=== PATIENT | female | born 1950 | race African-American/Black ===

== ENCOUNTER 2018-06-07 17:29 | Emergency (ER) | payer BC ==
--- NOTE | 2018-06-07 19:07 | RAD REPORT ---
EXAM DESCRIPTION: CT - Stone Protocol - 06/07/2018 6:31 pm CLINICAL HISTORY: FLANK PAINAbdominal pain/right flank for 1 week COMPARISON: none TECHNIQUE: Computed axial tomography of the abdomen pelvis was obtained without oral or IV contrast. Lack of IV and oral contrast limits evaluation of solid organs, bowel, and vessels. Coronal reformat antonio images were obtained and reviewed. All CT scans are performed using dose optimization technique as appropriate and may include automated exposure control or mA/KV adjustment according to patient size. FINDINGS: A renal calculus is not seen. An ureteral calculus is not noted. A bladder calculus is not present. Small hepatic cyst is suspected. Spleen, pancreas and adrenals appear grossly normal There is no evidence of diverticulitis. The appendix is not clearly visualized although evaluation is limited secondary to lack of contrast administration A hysterectomy has been performed IMPRESSION: Negative for a genitourinary calculus
[2018-06-07] MEDS ORDERED: KETOROLAC 30 MG/ML INJ ONE (19:29)
--- NOTE | 2018-06-07 19:45 | EDPHYS ---
Physician Documentation [facility] Name: Ginger Carrington Age: 68 yrs Sex: Female : 1950 Arrival Date: 06/07/2018 Time: 17:34 Bed 19 Private MD: None, None ED Physician Babak Mcmillan HPI: 06/07 19:12 This 68 yrs old Black Female presents to ER via Ambulatory with complaints of Back kb Pain, Flank Pain. 19:12 The patient presents with pain that is acute, with no known mechanism of injury. The kb symptoms are located in the right side, just above right hip. Onset: The symptoms/episode began/occurred 10 day(s) ago. The pain does not radiate. Associated signs and symptoms: The patient has no apparent associated signs or symptoms. The problem was sustained from unknown cause. Modifying factors: The patient symptoms are alleviated by nothing, the patient symptoms are aggravated by walking. Severity of symptoms: At their worst the symptoms were moderate, in the emergency department the symptoms are unchanged. The patient has not experienced similar symptoms in the past. The patient has been recently seen by a physician: in urgent care, with similar presenting complaints, given muscle relaxers, Tylenol with codeine and ibuprofen 800mg tabs. Historical: - Allergies: 17:48 No Known Allergies; aa5 - Home Meds: 17:48 amlodipine oral once daily [Active]; aa5 - PMHx: 17:48 Hypertension; aa5 - PSHx: 17:48 None; aa5 - Immunization history:: Flu vaccine is up to date. - Social history:: Smoking status: Patient/guardian denies using tobacco. - Ebola Screening: : No symptoms or risks identified at this time. ROS: 19:16 Constitutional: Negative for fever, chills, and weight loss, Cardiovascular: Negative kb for chest pain, palpitations, and edema, Respiratory: Negative for shortness of breath, cough, wheezing, and pleuritic chest pain, Abdomen/GI: Negative for abdominal pain, nausea, vomiting, diarrhea, and constipation, : Negative for injury, bleeding, discharge, and swelling, MS/Extremity: Negative for injury and deformity, Skin: Negative for injury, rash, and discoloration, Neuro: Negative for headache, weakness, numbness, tingling, and seizure. 19:16 Back: Positive for right side just above hip pain, worse with ambulation. Exam: 19:19 Constitutional: This is a well developed, well nourished patient who is awake, alert, kb and in no acute distress. Head/Face: Normocephalic, atraumatic. Chest/axilla: Normal chest wall appearance and motion. Nontender with no deformity. No lesions are appreciated. Cardiovascular: Regular rate and rhythm with a normal S1 and S2. No gallops, murmurs, or rubs. Normal PMI, no JVD. No pulse deficits. Respiratory: Lungs have equal breath sounds bilaterally, clear to auscultation and percussion. No rales, rhonchi or wheezes noted. No increased work of breathing, no retractions or nasal flaring. Abdomen/GI: Soft, non-tender, with normal bowel sounds. No distension or tympany. No guarding or rebound. No evidence of tenderness throughout. Back: No spinal tenderness. No costovertebral tenderness. Full range of motion. Skin: Warm, dry with normal turgor. Normal color with no rashes, no lesions, and no evidence of cellulitis. MS/ Extremity: Pulses equal, no cyanosis. Neurovascular intact. Full, normal range of motion. Neuro: Awake and alert, GCS 15, oriented to person, place, time, and situation. Cranial nerves II-XII grossly intact. Motor strength 5/5 in all extremities. Sensory grossly intact. Cerebellar exam normal. Normal gait. Vital Signs: 17:49 BP 150 / 84; Pulse 87; Resp 16 S; Temp 97.2(TE); Pulse Ox 100% on R/A; Weight 81.65 kg aa5 (R); Height 5 ft. 2 in. (157.48 cm) (R); Pain 8/10; 19:43 BP 158 / 81; Pulse 74; Resp 16 S; Pulse Ox 99% on R/A; jd3 17:49 Body Mass Index 32.92 (81.65 kg, 157.48 cm) aa5 MDM: 18:05 Patient medically screened. kb 19:12 Data reviewed: vital signs, nurses notes. Data interpreted: Pulse oximetry: on room air kb is 100 %. Interpretation: normal. Counseling: I had a detailed discussion with the patient and/or guardian regarding: the historical points, exam findings, and any diagnostic results supporting the discharge/admit diagnosis, lab results, radiology results, the need for outpatient follow up, a family practitioner, to return to the emergency department if symptoms worsen or persist or if there are any questions or concerns that arise at home. 06/07 19:28 Order name: Urine Dipstick--Ancillary (enter results) eb 06/07 18:14 Order name: CT Stone Protocol; Complete Time: 19:10 kb 06/07 18:14 Order name: Urine Dipstick-Ancillary (obtain specimen); Complete Time: 19:28 kb Administered Medications: 19:30 Drug: TORadol 60 mg Route: IM; Site: right deltoid; jd3 20:11 Follow up: Response: No adverse reaction jd3 Disposition: 06/07/18 19:45 Discharged to Home. Impression: Low back pain. - Condition is Stable. - Discharge Instructions: Back Pain, Adult, Vbyr-ra-Hbor. - Medication Reconciliation Form, Thank You Letter, Antibiotic Education, Prescription Opioid Use form. - Follow up: Emergency Department; When: As needed; Reason: Worsening of condition. Follow up: Private Physician; When: 2 - 3 days; Reason: Recheck today's complaints, Continuance of care, Re-evaluation by your physician. Addendum: 06/11/2018 07:13 Co-signature as Attending Physician, Babak Mcmillan MD I agree with the assessment and k dr plan of care. Signatures: Dispatcher [employer] EDMS Selin Osborn, TRAILER STEERER-C TRAILER STEERER-Ckb Babak Mcmillan MD MD [facility] Chloe Anderson RN RN aa5 Gigi Rico RN RN jd3 Corrections: (The following items were deleted from the chart) 06/07 19:19 19:16 Constitutional: Negative for fever, chills, and weight loss, Cardiovascular: kb Negative for chest pain, palpitations, and edema, Respiratory: Negative for shortness of breath, cough, wheezing, and pleuritic chest pain, Abdomen/GI: Negative for abdominal pain, nausea, vomiting, diarrhea, and constipation, : Negative for injury, bleeding, discharge, and swelling, MS/Extremity: Negative for injury and deformity, Skin: Negative for injury, rash, and discoloration, Neuro: Negative for headache, weakness, numbness, tingling, and seizure, kb 19:20 19:20 06/07/2018 19:20 Discharged to Home. Impression: Low back pain. Condition is kb Stable. Forms are Medication Reconciliation Form, Thank You Letter, Antibiotic Education, Prescription Opioid Use. Follow up: Emergency Department; When: As needed; Reason: Worsening of condition. Follow up: Private Physician; When: 2 - 3 days; Reason: Recheck today's complaints, Continuance of care, Re-evaluation by your physician. kb 20:16 19:45 06/07/2018 19:45 Discharged to Home. Impression: Low back pain. Condition is jd3 Stable. Forms are Medication Reconciliation Form, Thank You Letter, Antibiotic Education, Prescription Opioid Use. Follow up: Emergency Department; When: As needed; Reason: Worsening of condition. Follow up: Private Physician; When: 2 - 3 days; Reason: Recheck today's complaints, Continuance of care, Re-evaluation by your physician. kb
--- NOTE | 2018-06-07 19:45 | ER ---
Nurse's Notes [facility] Name: Ginger Carrington Age: 68 yrs Sex: Female : 1950 Arrival Date: 06/07/2018 Time: 17:34 Bed 19 Private MD: None, None Diagnosis: Low back pain Presentation: 06/07 17:47 Presenting complaint: Patient states: right flank pain that began May 28. Pt aa5 reports being seen at urgent care on Friday and prescribed Flexeril, reports negative UTI at the time. Pt denies urinary symptoms. Denies known injury. Transition of care: patient was not received from another setting of care. Onset of symptoms was May 2018. Risk Assessment: Do you want to hurt yourself or someone else? Patient reports no desire to harm self or others. Initial Sepsis Screen: Does the patient meet any 2 criteria? No. Patient's initial sepsis screen is negative. Does the patient have a suspected source of infection? No. Patient's initial sepsis screen is negative. Care prior to arrival: None. 17:47 Method Of Arrival: Ambulatory aa5 17:47 Acuity: BALAJI 3 aa5 Historical: - Allergies: 17:48 No Known Allergies; aa5 - Home Meds: 17:48 amlodipine oral once daily [Active]; aa5 - PMHx: 17:48 Hypertension; aa5 - PSHx: 17:48 None; aa5 - Immunization history:: Flu vaccine is up to date. - Social history:: Smoking status: Patient/guardian denies using tobacco. - Ebola Screening: : No symptoms or risks identified at this time. Screenin:55 Abuse screen: Denies threats or abuse. Nutritional screening: No deficits noted. em Tuberculosis screening: No symptoms or risk factors identified. Fall Risk None identified. Assessment: 18:15 General: Appears in no apparent distress. uncomfortable, Behavior is calm, cooperative. em Pain: Complains of pain in anterior aspect of left lateral abdomen Pain currently is 8 out of 10 on a pain scale. Neuro: Level of Consciousness is awake, alert, obeys commands, Oriented to person, place, time, situation. Cardiovascular: Capillary refill < 3 seconds Patient's skin is warm and dry. Respiratory: Airway is patent Respiratory effort is even, unlabored, Respiratory pattern is regular, symmetrical. GI: Abdomen is flat. GI:. : Denies burning with urination. EENT: No signs and/or symptoms were reported regarding the EENT system. Derm: Skin is intact, Skin is pink, warm \T\ dry. Musculoskeletal: Range of motion: intact in all extremities. 18:19 General: The previous assessment is accurate, call light remains within reach. . ss 19:16 Reassessment: Patient appears in no apparent distress at this time. No changes from jd3 previously documented assessment. Patient and/or family updated on plan of care and expected duration. Pain level reassessed. Patient is alert, oriented x 3, equal unlabored respirations, skin warm/dry/pink. 19:43 Reassessment: Patient appears in no apparent distress at this time. No changes from jd3 previously documented assessment. Patient and/or family updated on plan of care and expected duration. Pain level reassessed. Patient is alert, oriented x 3, equal unlabored respirations, skin warm/dry/pink. 20:11 Reassessment: Patient appears in no apparent distress at this time. Patient and/or jd3 family updated on plan of care and expected duration. Pain level reassessed. Patient is alert, oriented x 3, equal unlabored respirations, skin warm/dry/pink. Vital Signs: 17:49 BP 150 / 84; Pulse 87; Resp 16 S; Temp 97.2(TE); Pulse Ox 100% on R/A; Weight 81.65 kg aa5 (R); Height 5 ft. 2 in. (157.48 cm) (R); Pain 8/10; 19:43 BP 158 / 81; Pulse 74; Resp 16 S; Pulse Ox 99% on R/A; jd3 17:49 Body Mass Index 32.92 (81.65 kg, 157.48 cm) aa5 ED Course: 17:34 Patient arrived in ED. mr 17:35 None, None is Private Physician. mr 17:48 Triage completed. aa5 17:49 Arm band placed on. aa5 17:54 Juan Ramon Mcdonough LVN is Primary Nurse. em 17:55 Patient has correct armband on for positive identification. Bed in low position. Call em light in reach. 18:05 Selin Osborn F[facility]-C [facility]. kb 18:05 Babak Mcmillan MD is Attending Physician. kb 18:31 CT completed. Patient tolerated procedure well. Patient moved back from CT. bq 18:31 CT Stone Protocol In Process Unspecified. EDMS 19:21 No provider procedures requiring assistance completed. Patient did not have IV access em during this emergency room visit. Administered Medications: 19:30 Drug: TORadol 60 mg Route: IM; Site: right deltoid; jd3 20:11 Follow up: Response: No adverse reaction jd3 Outcome: 19:20 Discharge ordered by . kb 19:45 Discharge ordered by . kb 20:10 Discharged to home ambulatory. jd3 20:10 Condition: stable 20:10 Discharge instructions given to patient, Instructed on discharge instructions, follow up and referral plans. Demonstrated understanding of instructions, follow-up care. 20:16 Patient left the ED. jd3 Signatures: Dispatcher [employer] EDMS Selin Osborn, PAD EXTRACTION TENDER-C PAD EXTRACTION TENDER-CkLou Carpio mr Caraballo, Myah bq Ceasar, Juan Ramon, DIGITAL PHOTOGRAPHIC PRINTER DIGITAL PHOTOGRAPHIC PRINTER em Chloe Anderson, RN RN aa5 Velma Medeiros RN RN ss Davies, Jonathon, RN RN jd3
[2018-06-07 20:39] LABS: Urine Blood NEGATIVE (NEG); Urine Glucose NEGATIVE (NEG); Urine Protein NEGATIVE (NEG)
== END 2018-06-07 20:16 | disposition home or self-care (01) ==
LOC: ER 17:29
DX: M54.5 Low back pain (principal); I10 Essential (primary) hypertension
CPT/HCPCS: 74176; 76377; 81003; 96372; 99284